=== PATIENT | female | born 1960 | race Caucasian/White ===

== ENCOUNTER 2022-12-01 06:31 | Day surgery (SDC) | payer MEDICAID ==
[2022-12-01] MEDS ORDERED: Sodium Chloride 0.9% 1,000 ML IV SCH (07:00)
[2022-12-01] MEDS ORDERED: Propofol 200 MG/20 ML SDV ONE (07:22)
[2022-12-01] MEDS ORDERED: fentaNYL 50 MCG/ML SDV ONE (07:22)
[2022-12-01] MEDS ORDERED: Midazolam 1 MG/ML 2 ML SDV ONE (07:22)
== END 2022-12-01 09:10 | disposition home or self-care (01) ==
LOC: JP.SDS 06:31
PROVIDERS: ATTEND Surgery
DX: Z12.11 Encounter for screening for malignant neoplasm of colon (principal); K62.1 Rectal polyp; Z88.2 Allergy status to sulfonamides
CPT/HCPCS: 45385; 88305; J2250; J2704; J3010; J7030

== ENCOUNTER 2022-12-04 06:25 | Day surgery (SDC) | payer MEDICAID ==
[~2022-12-04 06:25] MED LIST: Sodium Chloride 0.9% 1,000 ML IV SCH
[2022-12-04] MEDS ORDERED: Bupivacaine 0.5% 50 ML MDV ONE (06:48)
[2022-12-04] MEDS ORDERED: Isosulfan Blue 5 ML SDV ONE (06:48)
[2022-12-04] MEDS ORDERED: Lidocaine 1% with EPINEPHrine 1:100,000 50 ML MDV ONE (06:49)
[2022-12-04] MEDS ORDERED: ceFAZolin 2 GM in Premix Bag 1 BAG IV ONE (07:30)
[2022-12-04] MEDS ORDERED: Lidocaine 1% 20 ML MDV INJECT ONE (08:00)
[2022-12-04] MEDS ORDERED: fentaNYL 100 MCG/2 ML SDV ONE ×2 (13:37→16:05)
[2022-12-04] MEDS ORDERED: Propofol 200 MG/20 ML SDV ONE (13:38)
[2022-12-04] MEDS ORDERED: Ondansetron 4 MG/2 ML SDV ONE (13:38)
[2022-12-04] MEDS ORDERED: Dexamethasone 4 MG/ML SDV ONE (13:38)
[2022-12-04] MEDS ORDERED: Midazolam 1 MG/ML 2 ML SDV ONE (13:38)
[2022-12-04] MEDS ORDERED: Ondansetron 4 MG/2 ML SDV IVPUSH PRN (14:29)
[2022-12-04] MEDS ORDERED: Docusate Sodium 100 MG Cap PO PRN (14:29)
[2022-12-04] MEDS ORDERED: Zolpidem 5 MG Tab PO PRN (14:29)
[2022-12-04] MEDS ORDERED: Acetaminophen/HYDROcodone 325-5 MG Tab PO PRN (14:29)
[2022-12-04] MEDS ORDERED: fentaNYL 100 MCG/2 ML SDV IVPUSH PRN ×3 (14:29)
[2022-12-04] MEDS ORDERED: Benzocaine/Cetylpyridinium/Menthol Lozenge MUCMEM PRN (14:29)
[2022-12-04] MEDS ORDERED: Scopolamine 1.5 MG Transdermal Patch TOP SCH (15:00)
[2022-12-04] MEDS ORDERED: Lactated Ringers 1,000 ML ONE (16:06)
== END 2022-12-04 18:35 | disposition home or self-care (01) ==
LOC: JP.SDS 06:25
PROVIDERS: ATTEND Surgery
DX: D05.11 Intraductal carcinoma in situ of right breast (principal); J45.909 Unspecified asthma, uncomplicated; Z87.891 Personal history of nicotine dependence; Z98.0 Intestinal bypass and anastomosis status
CPT/HCPCS: 19281; 19301; 36415; 38525; 77065; 78195; 86850; 86900; 86901; A9270; A9541; J0690; J1100; J2250; J2405; J2704; J3010; J3490; J7030; J7120; Q9968

== ENCOUNTER 2023-01-12 09:20 | Day surgery (SDC) | payer MEDICAID ==
[~2023-01-12 09:20] MED LIST changes: +Bupivacaine 0.5% 50 ML MDV ONE; +Lidocaine 1% with EPINEPHrine 1:100,000 50 ML MDV ONE; -Sodium Chloride 0.9% 1,000 ML IV SCH
[2023-01-12] MEDS ORDERED: Midazolam 1 MG/ML 2 ML SDV ONE (10:06)
[2023-01-12] MEDS ORDERED: Propofol 200 MG/20 ML SDV ONE (10:06)
[2023-01-12] MEDS ORDERED: fentaNYL 100 MCG/2 ML SDV ONE (10:06)
[2023-01-12] MEDS ORDERED: Sodium Chloride 0.9% 1,000 ML IV SCH (11:45)
[2023-01-12] MEDS ORDERED: ceFAZolin 1 GM Vial IM ONE (13:15)
[2023-01-12] MEDS ORDERED: ceFAZolin 1 GM in Premix Bag 1 BAG IV ONE (13:30)
== END 2023-01-12 15:30 | disposition home or self-care (01) ==
LOC: JP.SDS 09:20
PROVIDERS: ATTEND Surgery
DX: C50.911 Malignant neoplasm of unspecified site of right female breast (principal); J45.909 Unspecified asthma, uncomplicated; Z88.2 Allergy status to sulfonamides
CPT/HCPCS: 36561; 77001; C1788; C1894; J0690; J1642; J2250; J2704; J3010; J3490

== ENCOUNTER 2023-09-13 07:19 | Day surgery (SDC) | payer MEDICAID, OTHER ==
[~2023-09-13 07:19] MED LIST changes: -Bupivacaine 0.5% 50 ML MDV ONE; -Lidocaine 1% with EPINEPHrine 1:100,000 50 ML MDV ONE; +Midazolam 1 MG/ML 2 ML SDV ONE; +Propofol 200 MG/20 ML SDV ONE; +fentaNYL 50 MCG/ML SDV ONE
[2023-09-13] MEDS: Sodium Chloride 0.9% 1,000 ML IV SCH (08:05)
[2023-09-13] MEDS: Lidocaine 1% with EPINEPHrine 1:100,000 50 ML MDV ONE (09:46)
[2023-09-13] MEDS: Bupivacaine 0.5% 50 ML MDV ONE (09:46)
== END 2023-09-13 10:18 | disposition home or self-care (01) ==
LOC: JP.SDS 07:19 → UNDOADMIN 07:20 → JP.SDSSCHI 07:20 → EDSTATUS 08:30 → JP.SDS 10:18 → UNDODISIN 10:18
PROVIDERS: ATTEND Surgery
DX: D49.3 Neoplasm of unspecified behavior of breast (principal)
CPT/HCPCS: 36590; J2250; J2704; J3010; J3490; J7030

== ENCOUNTER 2025-01-19 07:39 | Inpatient (IN) | payer MEDICARE, BC ==
[2025-01-19] MEDS: Lactated Ringers 1,000 ML IV SCH (08:12)
[2025-01-19] MEDS: Nozin Nasal Sanitizer NASBOTH ONE (08:15)
[2025-01-19 08:23] LABS: HEMATOCRIT 43.6 % (34.3-46.0); HEMOGLOBIN 14.4 g/dL (11.2-15.5); MEAN CORPUSCULAR HEMOGLOBIN 33.8 pg (31.6-35.5); MEAN CORPUSCULAR VOLUME 102.3 fL (81.4-99.0); RED BLOOD CELL COUNT 4.26 M/uL (3.77-5.24); WHITE BLOOD CELL COUNT,WBC 6.6 K/uL (3.2-11.0)
[2025-01-19] MEDS ORDERED: fentaNYL 100 MCG/2 ML SDV ONE ×3 (08:23→11:08)
[2025-01-19] MEDS ORDERED: Midazolam 1 MG/ML 2 ML SDV ONE (08:23)
[2025-01-19] MEDS ORDERED: Propofol 200 MG/20 ML SDV ONE ×2 (08:23→10:25)
[2025-01-19 08:33] LABS: ALANINE AMINOTRANSFERASE,ALT 26 U/L (12-78); ALBUMIN 3.5 g/dL (3.4-5.0); ALKALINE PHOSPHATASE 53 U/L (46-116); ANION GAP 7.2 mmol/L (5.0-14.0); ASPARTATE AMNIOTRANSFERASE,AST 18 U/L (15-37); BILIRUBIN TOTAL 0.5 mg/dL (0.2-1.0); BLOOD UREA NITROGEN,BUN 19 mg/dL (7-18); CALCIUM 9.4 mg/dL (8.5-10.1); CARBON DIOXIDE,CO2 28 mmol/L (21-32); CHLORIDE,CL 105 mmol/L (100-108); CREATININE 0.5 mg/dL (0.6-1.0); EST CRCL DRUG DOSING (CG) 88.72 mL/min; ESTIMATED GFR 104 mL/min (>60); GLUCOSE RANDOM 103 mg/dL (74-106); POTASSIUM,K 4.3 mmol/L (3.6-5.2); PROTEIN TOTAL,TP 6.9 g/dL (6.4-8.2); SODIUM,NA 140 mmol/L (140-148)
[2025-01-19] MEDS: ceFAZolin 2 GM in Premix Bag 1 BAG IV ONE (09:15)
[2025-01-19] MEDS: Tranexamic Acid 860 MG in Sodium Chloride 0.9% 50 ML IV ONE (09:45)
[2025-01-19] MEDS ORDERED: Lactated Ringers 1,000 ML ONE (09:46)
[2025-01-19] MEDS: Bupivacaine 0.5% 50 ML MDV ONE (10:10)
[2025-01-19] MEDS ORDERED: Albuterol 6.7 GM Inhaler INH PRN (11:35)
[2025-01-19] MEDS ORDERED: Acetaminophen/HYDROcodone 325-5 MG Tab PO PRN (11:38)
[2025-01-19] MEDS ORDERED: Naloxone 0.4 MG/ML SDV IVPUSH PRN (11:40)
[2025-01-19] MEDS: Ketorolac 15 MG/ML SDV IVPUSH SCH (12:39)
[2025-01-19] MEDS: Acetaminophen 325 MG Tab PO SCH (12:39)
[2025-01-19] MEDS: Ondansetron 4 MG/2 ML SDV IVPUSH PRN (13:01)
[2025-01-19] MEDS: oxyCODONE 5 MG Tab PO PRN (14:46)
[2025-01-19] MEDS: TAMOXIFEN 20 MG PO SCH (17:02)
[2025-01-19] MEDS: ceFAZolin 1 GM in Premix Bag 1 BAG IV SCH (17:07)
[2025-01-19] MEDS: Nozin Nasal Sanitizer NASBOTH SCH (20:44)
[2025-01-19] MEDS: Morphine 2 MG/ML SYRINGE IVPUSH PRN (20:47)
[2025-01-19] MEDS ORDERED: Non-Formulary Medication 1 Each (Fluticasone/Salmeterol [Advair 100-50] 14 PUFF/DISKUS Dis INH SCH (21:00)
[2025-01-20] MEDS: oxyCODONE 5 MG Tab PO PRN (07:57)
[2025-01-21] MEDS: Aspirin 325 MG Tab.EC PO SCH (12:03)
[2025-01-21] MEDS: Docusate Sodium 100 MG Cap PO PRN (12:44)
== END 2025-01-21 14:38 | disposition home or self-care (01) | DRG 470 ==
LOC: JP.SDS 07:39 → JP.MS 11:31 → JP.SDS 01-20 13:12
PROVIDERS: ADMIT Specialist; ATTEND Specialist
PROC: 0SRC0J9 Replacement of Right Knee Joint with Synthetic Substitute, Cemented, Open Approach (ICD-10-PCS; principal; 2025-01-19 09:00)
DX: M17.0 Bilateral primary osteoarthritis of knee (principal); J45.909 Unspecified asthma, uncomplicated; F10.90 Alcohol use, unspecified, uncomplicated; E66.9 Obesity, unspecified; Z85.3 Personal history of malignant neoplasm of breast; Z87.891 Personal history of nicotine dependence; Z88.2 Allergy status to sulfonamides; Z68.34 Body mass index [BMI] 34.0-34.9, adult
CPT/HCPCS: 36415; 73560-26-RT; 73560-RT; 80053; 85027; 97110-GP; 97116-GP; 97161-GP; 97165-GO; 97530-GP; A9270-GY; C1713; C1776; J0665; J0689; J0690; J1885; J2250; J2270; J2405; J2704; J3010; J7120